=== PATIENT | male | born 1990 | race Caucasian/White ===

== ENCOUNTER 2021-12-07 11:20 | Outpatient (CLI) | payer OTHER, SELFPAY ==
--- NOTE | ~2021-12-07 | XR_ITS ---
XR knee LT min 4V DATE: 12/07/2021 11:49 INDICATION: Left knee pain anterolaterally; no injury TECHNIQUE: Linda, standing AP, PA and lateral views COMPARISON: None FINDINGS: No fracture or dislocation or joint effusion. No periosteal reaction or bone destruction. J oint spaces are preserved. No radiopaque interarticular loose body or chondrocalcinosis. IMPRESSION: Negative Reviewed, dictated and finalized at location A. OR [employer] IMPRESSION: Negative
[2021-12-07 12:12] LABS: Basophils Percent Auto 0.3 % (0.2-1.2); Eosinophils Absolute Auto 0.2 K/mm3 (0-0.3); Eosinophils Percent Auto 2.8 % (0-4.4); Hemoglobin 15.7 g/dL (14.0-18.0); Immature Granulocyte Absolute 0.04 K/mm3 (0.00-0.031); Immature Granulocyte Percent A 0.6 % (0-0.5); Lymphocytes Absolute Auto 1.54 K/mm3 (0.9-3.2); Lymphocytes Percent Auto 23.6 % (18.3-44.2); Mean Corpuscular HGB Conc 34.9 g/dl (32-36); Mean Corpuscular Hemoglobin 30.8 pg (26-34); Mean Corpuscular Volume 88.4 fl (80-100); Mean Platelet Volume 8.8 fl (7.4-10.4); Monocytes Absolute Auto 0.5 K/mm3 (0.1-0.6); Monocytes Percent Auto 8.3 % (2.6-8.5); Neutrophils Absolute Auto 4.2 K/mm3 (1.3-6.7); Neutrophils Percent Auto 64.4 % (45.5-73.1); Platelet Count Result 277 k/mm3 (150-375); Red Blood Count 5.09 M/mm3 (4.6-6.20); Red Cell Distribution Width 12.3 % (11.5-14.5); White Blood Count 6.5 K/mm3 (4.5-10.0)
[2021-12-07 12:24] LABS: Rheumatoid Factor < 8.6 IU/ML (<12)
[2021-12-14 23:26] LABS: Antithrombin III Activity 119 % normal (80-135); Factor V Leiden Mutation NEGATIVE; Protein S Antigen, Free 167 % normal (57-171)
== END 2021-12-07 11:21 | disposition home or self-care (01) ==
PROVIDERS: PCP Family Medicine; Visit Provider Family Medicine
DX: H54.7 Unspecified visual loss (principal); M25.562 Pain in left knee
CPT/HCPCS: 36415; 73564; 81240; 81241; 85025; 85301; 85303; 85306; 86038; 86430